=== PATIENT | male | born 2000 | race Caucasian/White ===

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

== ENCOUNTER 2022-01-13 07:05 | Emergency (ER) | payer OTHER, MEDICAID, SELFPAY ==
[2022-01-13 07:09] VITALS: BP 105/56; PULSE 66; RESP 12; TEMP 36.1; O2SAT 99
--- NOTE | 2022-01-13 07:30 | DI.RAD_ITS ---
Exam(s) XR THUMB LT EXAM: XR THUMB LT CLINICAL HISTORY: laceration. TECHNIQUE: 2D digital imaging was performed. Three views. COMPARISON: None. FINDINGS: BONES: No acute fracture is present. No bony destructive lesion is seen. JOINTS: No dislocation present. SOFT TISSUE: Soft tissue laceration at the distal some including portion of the fingernail. No forei gn body. IMPRESSION: Soft tissue amputation. No evidence of fracture. DATA REPOSITORY: RADIATION DOSE DELIVERED:
[2022-01-13] MEDS: Lidocaine/Epinephri/Tetracaine Topical Gel 3 ML (07:37)
--- NOTE | 2022-01-13 07:48 | W.ED.GENAD ---
Discharge Plan Disposition Patient Disposition: HOME Condition: Stable Discharge Details Clinical Impression: Laceration of left thumb with damage to nail Primary Care Provider: Yovana Reyna ED Provider: Marciano Terry Home Meds and New Rx's Prescriptions: No Action No Known Home Meds Discharge Instructions Instructions: Finger Laceration (ED) Additional Instructions: Keep wound dressing intact for the next 2 days. Change daily thereafter and monitor for signs of infection. Be sure to use sterile dressing. Follow-up with orthopedics. Return to the emergency department immediately for any worsening or new concerning symptoms. Referrals: [facility] [Provider Group] Discharge Data Discharge Date/Time-TO BE ENTERED AT DEPARTURE: 01/13/22 08:47 Medical Decision Making 21-year-old male here with distal left thumb laceration involving skin, nail and soft tissue, 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. X-ray of the thumb was reviewed and interpreted by me: No bony involvement. Tetanus immunization booster provided. Wound was anesthetized with topical let, ibuprofen and Tylenol provided. Wound was cleansed and sterile dressing applied. Usual customary discharge instructions reviewed with the patient he was encouraged to follow-up with hand specialist. HPI General Mode of arrival: ambulatory. Date/Time Provider Initiated Documentation: 01/13/22 07:32. Limitations to Documentation: no limitations. Information obtained by: patient. HPI Narrative: 21-year-old male presents with chief complaint of finger injury. Patient notes he lacerated his left distal thumb just prior to arrival today. Wound was initially bleeding. Bleeding has stopped. Wound is severe. No modifiers. No other injury. Patient is unsure of tetanus immunization status. Related Data Home Medications Medication Instructions Recorded Confirmed Unknown [No Known Home Meds] 07/03/19 02/03/20 Allergies Allergy/AdvReac Type Severity Reaction Status Date / Time shellfish derived Allergy Intermediate Unverified 01/13/22 07:20 General Stated Complaint: Laceration MENG: 4 Review of Systems Integumentary/Breasts Skin/Breast: Reports as per HPI [facility] All Active Problems (Updated 01/13/22 @ 08:00 by Marciano Terry MD) Laceration of left thumb with damage to nail (Acute) Medical History (Updated 01/13/22 @ 08:00 by Marciano Terry MD) Elbow fracture, left No acute medical problems Surgical History History of adenoidectomy History of tonsillectomy Social History Smoking/Tobacco Use Status: Never Smoking risk assessment performed?: Yes Alcohol Intake: current Alcohol Intake frequency: holidays/special occasions only Alcohol type: beer and hard liquor Drug use: Daily Substance use type: marijuana Do you feel safe at home: Yes Do you feel safe in your relationship?: Yes Exam Skin Trauma: laceration (distal left thumb) Extrem 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, 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, bleeding controlled) Details: neuromotor exam normal and tendon exam normal Course Vital Signs Vital signs: Vital Signs Temperature 36.1 C L 01/13/22 07:09 Pulse 66 01/13/22 07:09 Respiratory Rate 12 01/13/22 07:09 Blood Pressure 105/56 L 01/13/22 07:09 Pulse Oximetry 99 01/13/22 07:09 Temperature 36.1 C L 01/13/22 07:09 Temperature Source Tympanic 01/13/22 07:09 Pulse 66 01/13/22 07:09 Respiratory Rate 12 01/13/22 07:09 Respiratory Effort 01/13/22 07:25 Blood Pressure 105/56 L 01/13/22 07:09 Blood Pressure Position Sitting 01/13/22 07:09 Pulse Oximetry 99 01/13/22 07:09 Oxygen Delivery Method Room Air 01/13/22 07:09 Oxygen Flow Rate 0 01/13/22 07:09 Pain Level 6 01/13/22 07:23 PAWSS Have you Been Recently Intoxicated or Drunk Within the Last 30 days?: No Have you Ever Experienced Previous Episodes of Alcohol Withdrawal?: No Have you ever Experienced Withdrawal Seizures?: No Have you ever Experienced Delirium Tremens(DT)s?: No Have you ever undergone Alcohol Rehabilitation Treatment (i.e, inpt ot outpatient treatment programs)?: No Have you ever Experienced Blackouts?: No Have you ever Combined Alcohol with other Downers within the last 90 days?: No Have you ever Combined Alcohol with any other Substance of Abuse during the last 90 days?: No Positive Blood Alcohol level on Presentation? [PCS.BAL]: No Evidence of Increased Autonomic Activity (i.e. HR>120, tremor, sweating, agitation, nausea)?: No Result: 0
[2022-01-13] MEDS: Ibuprofen 600 MG TAB PO (07:51)
[2022-01-13] MEDS: Acetaminophen 325 MG TAB 650 MG PO (07:51)
[2022-01-13 08:29] VITALS: BP 101/45; PULSE 66; RESP 14; O2SAT 100
[2022-01-13 08:30] VITALS: BP 101/45; PULSE 66; RESP 14; O2SAT 100
== END 2022-01-13 08:47 | disposition home or self-care (01) ==
PROVIDERS: Emergency Provider Student in an Organized Health Care Education/Training Program; PCP Pediatrics
DX: S61.112A Laceration without foreign body of left thumb with damage to nail, initial encounter (principal); Z23 Encounter for immunization; X58.XXXA Exposure to other specified factors, initial encounter
CPT/HCPCS: 90471; 99283; 73140; 99282

== ENCOUNTER 2022-07-08 12:57 | Emergency (ER) | payer OTHER, MEDICAID, SELFPAY ==
[2022-07-08 13:00] VITALS: BP 124/59; PULSE 76; RESP 16; TEMP 35.9; O2SAT 99
--- NOTE | 2022-07-08 13:15 | DI.RAD_ITS ---
Exam(s) XR SHOULDER RT COMPLETE 2+V EXAM: XR SHOULDER RT COMPLETE 2+V CLINICAL HISTORY: anterior shoulder pain, basketball injury. TECHNIQUE: 2D digital imaging was performed. Five views. COMPARISON: No exams were available for comparison FINDINGS: BONES: No acute fracture is present. No bony destructive lesion is seen. An os acromiale is noted. JOINTS: No dislocation present. SOFT TISSUE: Normal. IMPRESSION: Unremarkable radiographs of the right shoulder. DATA REPOSITORY: RADIATION DOSE DELIVERED:
--- NOTE | 2022-07-08 13:45 | ED.GENADUL_ITS ---
Discharge Plan Disposition Patient Disposition: Home Condition: Stable Discharge Details Chief Complaint: Orthopedic Clinical Impression: Contusion of shoulder Primary Care Provider: Yovana Reyna ED Provider: Brad Merritt Home Meds and New Rx's Prescriptions: No Action No Known Home Meds Discharge Instructions Instructions: Contusion in Adults (ED), Shoulder Pain (ED) Additional Instructions: Continue with ibuprofen and/or acetaminophen at home for pain. Ice and/or heat as needed. Light range of motion as tolerated. Please return to the emergency department for any further needs. Medical Decision Making 22-year-old male presents with traumatic right shoulder pain, jammed his shoulder into a wall during a basketball game yesterday, took some ibuprofen yesterday/this morning with relief. Pain to anterior shoulder on palpation, no visible deformity, no abrasions or ecchymosis, patient has a full glenoid fossa, nontender clavicle, range of motion largely intact most uncomfortable range of motion during internal rotation otherwise able to flex and extend arm. Likely shoulder contusion must also consider AC joint separation versus less likely distal clavicular fracture lower suspicion for humeral fracture or dislocation. Will obtain screening x-ray. Patient does not want any analgesia or anti- inflammatory at this time. Would likely be given home care instructions and return precautions if not healing within the next week or beginning to improve will consider referral to orthopedic team. 14: 14 patient resting comfortably no acute distress no evidence of fracture or dislocation. Home care instructions and return precautions given HPI General Date/Time Provider Initiated Documentation: 07/08/22 13:19 . HPI Narrative: 22-year-old male presents 1 day after sustaining a right shoulder injury during basketball game, jammed his shoulder against a wall, pain to anterior shoulder Related Data Home Medications Medication Instructions Recorded Confirmed Unknown [No Known Home Meds] 07/03/19 07/08/22 Allergies Allergy/AdvReac Type Severity Reaction Status Date / Time shellfish derived Allergy Intermediate Verified 07/08/22 13:14 General Stated Complaint: Orthopedic MENG: 4 Review of Systems Narrative: Review of Systems Constitutional: negative Eyes: negative ENT: negative Cardiovascular: negative Respiratory: negative Gastrointestinal: negative : negative Musculoskeletal: Shoulder pain Skin: negative Neurologic: negative Psych: negative PFSH All Active Problems (Updated 07/08/22 @ 14:15 by Brad Merritt MD) Contusion of shoulder (Acute) Medical History (Updated 07/08/22 @ 14:15 by Brad Merritt MD) Elbow fracture, left No acute medical problems Surgical History History of adenoidectomy History of tonsillectomy Social History Smoking/Tobacco Use Status: Current-Occasional Tobacco Type: cigarettes and e- cigarettes Smoking risk assessment performed?: Yes Alcohol Intake: current Alcohol Intake frequency: holidays/special occasions only Alcohol type: beer and hard liquor Drug use: Daily Substance use type: marijuana Do you feel safe at home: Yes Do you feel safe in your relationship?: Yes Exam Narrative Exam Narrative: Physical Examination General: alert, awake, cooperative, resting comfortably, no acute distress HEENT: normocephalic, atraumatic Skin: no lesions, rashes or trauma appreciated Neuro: AAOx3, normal speech, moving all extremities Extremities: Tenderness to anterior shoulder on palpation without crepitus or deformity, patient has a full glenoid fossa, able to flex and extend shoulder internal rotation most painful, warm well perfused extremity no clavicular tenderness or step-off Psych: Appropriate mood and affect Course Vital Signs Vital signs: Vital Signs Temperature 35.9 C L 07/08/22 13:00 Pulse 76 07/08/22 13:00 Respiratory Rate 16 07/08/22 13:00 Blood Pressure 124/59 L 07/08/22 13:00 Pulse Oximetry 99 07/08/22 13:00 Temperature 35.9 C L 07/08/22 13:00 Temperature Source Tympanic 07/08/22 13:00 Pulse 76 07/08/22 13:00 Respiratory Rate 16 07/08/22 13:00 Respiratory Effort Normal 07/08/22 13:15 Blood Pressure 124/59 L 07/08/22 13:00 Blood Pressure Position Sitting 07/08/22 13:00 Pulse Oximetry 99 07/08/22 13:00 Oxygen Delivery Method Room Air 07/08/22 13:00 Oxygen Flow Rate 0 07/08/22 13:00 Pain Level 6 07/08/22 13:00 Comment pain worse with forward motion of right arm/shoulder states pain is mostly at end of collar bone 07/08/22 13:00
== END 2022-07-08 14:29 | disposition home or self-care (01) ==
PROVIDERS: Emergency Provider Emergency Medicine; PCP Pediatrics
DX: S40.011A Contusion of right shoulder, initial encounter (principal); W22.01XA Walked into wall, initial encounter; Y93.67 Activity, basketball
CPT/HCPCS: 99283; 73030; 99282